=== PATIENT | male | born 1985 | race Caucasian/White ===

== ENCOUNTER 2017-08-15 02:41 | Emergency (ER) | payer SELFPAY ==
[2017-08-15 03:07] VITALS: BP 125/84
[2017-08-15] MEDS ORDERED: MOTRIN PO ONE (03:09)
[2017-08-15 05:26] LABS: Basophils % (Auto) 0.1 % (0.0-1.8); Hematocrit 42.3 % (35.5-45.6); Hemoglobin 14.6 gm/dl (11.8-15.2); Mean Corpuscular HGB Conc 35 % (32-34); Mean Corpuscular Hemoglobin 30 pg (28-32); Mean Corpuscular Volume 86 fl (84-94); Platelet Count 246 K/mm3 (140-440); Red Blood Count 4.95 M/mm3 (3.65-5.03); Red Cell Distribution Width 13.3 % (13.2-15.2); White Blood Count 14.3 K/mm3 (4.5-11.0)
== END 2017-08-15 11:14 | disposition left against medical advice (07) ==
LOC: ED 02:41
DX: R07.9 Chest pain, unspecified (principal); Z53.21 Procedure and treatment not carried out due to patient leaving prior to being seen by health care provider
CPT/HCPCS: 36415; 84484; 85025; 93005; 93010